=== PATIENT | female | born 1975 | race Caucasian/White ===

== ENCOUNTER 2019-03-23 23:45 | Emergency (ER) | payer BC, SELFPAY ==
[2019-03-23 23:54] VITALS: BP 134/73; PULSE 70; RESP 16; TEMP 36.8; O2SAT 100; BMI 31.7
--- NOTE | 2019-03-24 | XRR_ITS ---
PROCEDURE INFORMATION: Exam: XR Left Knee Exam date and time: 03/24/2019 12:17 AM Age: 43 years old Clinical indication: Injury or trauma; Initial encounter; Blunt trauma; Left; Injury details: CO pain lateral aspect lt knee sp fall; Additional info: Left knee pain and injury TECHNIQUE: Imaging protocol: XR Left knee. Views: 3 views. COMPARISON: No relevant prior studies available. FINDINGS: Bones/joints: There is no joint effusion. The bone density is appropriate. No periosteal reaction. No osteomyelitis. No acute fracture or dislocation. No bony destructive changes. Soft tissues: No foreign body. No gas in the soft tissues. XR/XR knee LT 3V* [id number] IMPRESSION: No acute bony abnormality.
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
[2019-03-24 01:10] VITALS: BP 111/76; O2SAT 97
[2019-03-24 02:05] VITALS: BP 116/55; PULSE 61; O2SAT 96
== END 2019-03-24 02:07 | disposition home or self-care (01) ==
PROVIDERS: Emergency Provider Physician Assistant; Family Provider Family Medicine; PCP Family Medicine
DX: S83.422A Sprain of lateral collateral ligament of left knee, initial encounter (principal); X50.1XXA Overexertion from prolonged static or awkward postures, initial encounter; Y92.009 Unspecified place in unspecified non-institutional (private) residence as the place of occurrence of the external cause; F17.210 Nicotine dependence, cigarettes, uncomplicated
CPT/HCPCS: 73562; 99281; E0114

== ENCOUNTER 2021-07-09 21:41 | Emergency (ER) | payer BC, SELFPAY ==
[2021-07-09 22:15] VITALS: BP 116/76; PULSE 71; RESP 15; TEMP 36.6; O2SAT 96; BMI 31.7
--- NOTE | 2021-07-09 22:25 | ED_ITS ---
HPI - Nausea/Vomiting/Diarrhea General: Chief complaint: Nausea/Vomiting/Diarrhea Stated complaint: N/V, weakness Time Seen by Provider: 07/09/21 22:23 History of Present Illness: 45-year-old female comes in today with complaints of nausea vomiting diarrhea since Tuesday. Patient ports a mild fever on Tuesday and Tuesday. Last episode of emesis was yesterday. Patient continues to feel bad today and wanted to be evaluated. Patient appears mildly unwell but not toxic. Patient appears in no pain. Associated nausea: Yes Associated symtoms: Reports nausea; Denies chest pain Review of Systems Const: Denies: fever(s) Card: Denies: chest pain Resp: Denies: dyspnea GI: Reports: nausea, vomiting and diarrhea : Denies: difficulty voiding Skin/Breast: Denies: rash PFSH ED PFSH: Social History Smoking and tobacco status: current every day smoker Female Reproductive History: Date of last menstrual period: 03/09/19 Physical Exam Const: COMMON NORMALS: alert HENMT: COMMON NORMALS: normocephalic HEAD & SCALP: normocephalic Resp: COMMON NORMALS: normal respiratory effort and clear to auscultation bilaterally AUSCULTATION: clear to auscultation bilaterally Cardio: COMMON NORMALS: regular rate and regular rhythm RATE: regular rate RHYTHM: regular rhythm GI: COMMON NORMALS: Soft to palpation AUSCULTATION: Yes normoactive bowel sounds PALPATION: Yes Soft to palpation, Yes Tenderness to palpation present (GI) (Mild generalized), No Guarding due to palpation present (GI) and No Rebound tenderness present : COMMON NORMALS: Yes no CVA tenderness BLADDER/KIDNEY EXAM: Yes no CVA tenderness Back/Pelvis: COMMON NORMALS: no CVA tenderness Extremity: COMMON NORMALS: normal to inspection Neuro: SENSORIUM/ORIENTATION: Yes alert Skin: COMMON NORMALS: no rashes or lesions noted GENERAL SKIN EXAM: no rashes or lesions noted Course Vital Signs: Vital signs: Vital Signs Temperature 97.9 F 07/09/21 22:15 Pulse Rate 71 07/09/21 22:15 Respiratory Rate 15 07/09/21 22:15 Blood Pressure 116/76 07/09/21 22:15 Pulse Oximetry 96 07/09/21 22:15 MDM - Nausea/Vomiting/Diarrhea Medical Decision Making 45-year-old female comes in today for complaints of 3 days of nausea vomiting and diarrhea. Patient had fever for the first 2 days but has resolved today. Patient continues to feel poorly. On exam abdomen soft nontender. Skin is warm and dry. Vital signs are normal. Differential diagnosis includes but not limited to gastroenteritis, dehydration, cholecystitis. CBC and CMP were unremarkable. Patient's lipase was slightly elevated at 79. Believe the patient probably has a bout of gastroenteritis. Will encourage plenty of fluids and Zofran as needed for nausea. Patient was given 1 L of IV fluids in the ER with some improvement of symptoms. Lab Data : 07/09/21 23:07/09/21: Laboratory Results WBC 7.5 10^3/uL (4.0-10.0) 07/09/21: RBC 4.92 10^6/uL (4.1-5.3) 07/09/21: Hgb 13.3 g/dL (11.5-15.3) 07/09/21: Hct 41.7 % (37.0-47.0) 07/09/21: MCV 84.8 fl (81-99) 07/09/21: MCH 27.0 pg (28.0-34.0) L 07/09/21: MCHC 31.9 g/dL (30.0-36.0) 07/09/21: RDW 16.8 % (12.1-15.1) H 07/09/21: Plt Count 326 10^3/cmm (130-400) 07/09/21: MPV 9.0 fL (7.4-10.4) 07/09/21: Neut % (Auto) 47.0 % 07/09/21: Lymph % (Auto) 32.7 % 07/09/21: [place] % (Auto) 8.6 % 07/09/21: Eos % (Auto) 10.8 % 07/09/21: Baso % (Auto) 0.8 % 07/09/21: Neut # (Auto) 3.54 10^3/uL (1.8-7.7) 07/09/21 23:30 Lymph # (Auto) 2.5 10^3/uL (0.8-4.8) 07/09/21 23:30 [place] # (Auto) 0.7 10^3/uL (0.2-0.9) 07/09/21 23:30 Eos # (Auto) 0.8 10^3/uL (0.0-0.8) 07/09/21 23: Baso # (Auto) 0.1 10^3/uL (0.0-0.1) 07/09/21 23:30 Nucleated RBC % (auto) 0 % 07/09/21 23: Nucleated RBCs # 0.0 /100WBC 07/09/21 23: Sodium 136 mmol/L (136-145) 07/09/21 23: Potassium 3.7 mmol/L (3.5-5.1) 07/09/21: Chloride 102 mmol/L (98-107) 07/09/21: Carbon Dioxide 25 mmol/L (22-29) 07/09/21 23: Anion Gap 12.7 (5-19) 07/09/21 23:30 BUN 13 mg/dL (6-20) 07/09/21:30 Creatinine 0.9 mg/dL (0.5-0.9) 07/09/21 23:30 GFR Calculation 67.7 mL/min (90-130) L 07/09/21 23: Glucose 106 mg/dL (65-115) 07/09/21 23: Calculated Osmolality 283 mOsm/kg (285-295) L 07/09/21: Calcium 8.2 mg/dL (8.5-10.5) L 07/09/21:30 Total Bilirubin 0.2 mg/dL (0.15-1.2) 07/09/21: AST 23 U/L (0-32) 07/09/21: ALT 21 U/L (0-33) 07/09/21 23:30 Alkaline Phosphatase 101 IU/L (35-105) 07/09/21 23:30 Total Protein 6.6 g/dL (6.6-8.7) 07/09/21: Albumin 4.0 g/dL (3.5-5.2) 07/09/21 23:30 Globulin 2.6 g/dL (1.3-4.6) 07/09/21 23:30 Lipase 79 U/L (13-60) H 07/09/21 23:30 HCG, Qual Negative (Negative) 07/09/21 23:30 Urine Color Yellow (Yellow) 07/10/21 00:45 Urine Appearance Clear (CLEAR) 07/10/21 00:45 Urine pH 6 (5-7) 07/10/21 00:45 Ur Specific [place] 1.020 (1.005-1.030) 07/10/21 00:45 Urine Protein Neg (Negative) 07/10/21 00:45 Urine Glucose (UA) Norm (Normal) 07/10/21 00:45 Urine Ketones Negative (Negative) 07/10/21 00:45 Urine Blood Neg (Negative) 07/10/21 00:45 Urine Nitrate Negative (Negative) 07/10/21 00:45 Urine Bilirubin Neg (Negative) 07/10/21 00:45 Urine Urobilinogen Norm mg/dL (Negative) 07/10/21 00:45 Ur Leukocyte Esterase Negative (Negative) 07/10/21 00:45 Influenza Type A Ag Negative (Negative) 07/09/21 23:35 Influenza Type B Ag Negative (Negative) 07/09/21 23:35 Discharge Plan Discharge Patient Disposition: Home Clinical Impression: Gastroenteritis Condition: Stable Prescriptions: New ondansetron 4 mg tablet,disintegrating 4 mg PO Q8H PRN (Reason: nausea and vomiting) Qty: 7 0RF Discharge Orders: Discharge ED (Routine); Ordered 07/10/21 Ordered By: Juan Rai Referrals: Nicholas Anand MD [Primary Care Provider] - Discharge Diet: Advance as tolerated Discharge Activity: Increase activity as tolerated Patient Instructions: Gastroenteritis (ED) Activity Restrictions/Additional Instructions: Drink plenty of fluids. Start diet with a clear liquid diet such as juices, Jell-O, and broth. Increase diet to full liquids such as cream soups, chicken noodle soup, and then increase to a bland diet such as bananas, rice, apples, toast, boiled chicken. Monitor for fevers greater than 100.4, blood in vomit or stool, or worsening abdominal pain. Return to the ER for these new concerns. Follow-up with primary care as needed. Coding Level of Care Code ED Public Information Relations Manager for Chg Fwd Exam Comprehensive
[2021-07-09] MEDS: sodium chloride 0.9% 1,000 ML 999 ML IV (23:28)
[2021-07-09] MEDS: ondansetron 2 mg/ML SDV 2 mL 4 MG IVP (23:29)
[2021-07-09 23:49] LABS: Basophils # 0.1 10^3/uL (0.0-0.1); Basophils % 0.8 %; Eosinophils # 0.8 10^3/uL (0.0-0.8); Eosinophils % 10.8 %; Hematocrit 41.7 % (37.0-47.0); Hemoglobin 13.3 g/dL (11.5-15.3); Lymphocytes # 2.5 10^3/uL (0.8-4.8); Lymphocytes % 32.7 %; Mean Corpuscular HGB Conc 31.9 g/dL (30.0-36.0); Mean Corpuscular Volume 84.8 fl (81-99); Monocytes # 0.7 10^3/uL (0.2-0.9); Monocytes % 8.6 %; Neutrophils # 3.54 10^3/uL (1.8-7.7); Nucleated Red Blood Cells % 0 %; Platelet Count 326 10^3/cmm (130-400); Red Blood Count 4.92 10^6/uL (4.1-5.3); Red Cell Distribution Width 16.8 % (12.1-15.1); White Blood Count 7.5 10^3/uL (4.0-10.0)
[2021-07-10 00:01] LABS: Influenza A by IFA Negative (Negative); Influenza B by IFA Negative (Negative)
[2021-07-10 00:09] LABS: Alanine Aminotransferase 21 U/L (0-33); Alkaline Phosphatase 101 IU/L (35-105); Blood Urea Nitrogen 13 mg/dL (6-20); Calcium 8.2 mg/dL (8.5-10.5); Carbon Dioxide 25 mmol/L (22-29); Chloride 102 mmol/L (98-107); Creatinine Clr Calc Pharmacy 82.7264; Globulin 2.6 g/dL (1.3-4.6); Glomerular Filtration Rate 67.7 mL/min (90-130); Glucose 106 mg/dL (65-115); Lipase 79 U/L (13-60); Osmolality Calculated 283 mOsm/kg (285-295); Sodium 136 mmol/L (136-145); Total Bilirubin 0.2 mg/dL (0.15-1.2); Total Protein 6.6 g/dL (6.6-8.7)
[2021-07-10 00:10] LABS: Anion Gap 12.7 (5-19); Aspartate Amino Transferase 23 U/L (0-32); Potassium 3.7 mmol/L (3.5-5.1)
[2021-07-10 00:15] LABS: HCG, Serum Qual Negative (Negative)
[2021-07-10 01:01] LABS: Add Urine Microscopic? NO; Charge for UA Resulting for Rev
[2021-07-10 01:15] LABS: Bilirubin Urine Neg (Negative); Blood Urine Neg (Negative); Glucose Urine UA Norm (Normal); Ketones Urine Negative (Negative); Leukocyte Esterase Urine Negative (Negative); Nitrate Urine Negative (Negative); Protein Urine Neg (Negative); Urine Appearance Clear (CLEAR); Urine Color Yellow (Yellow); Urobilinogen Urine Norm (Negative); pH Urine 6 (5-7)
--- NOTE | 2021-07-10 01:18 | PC.NURSE ---
put bp cuff on pt several times she keeps removing, pt took off her iv fluids states I have been here since 9
[2021-07-10 01:19] VITALS: BP 102/55
== END 2021-07-10 01:39 | disposition home or self-care (01) ==
PROVIDERS: Emergency Provider Nurse Practitioner Family; PCP Family Medicine
DX: K52.9 Noninfective gastroenteritis and colitis, unspecified (principal); F17.200 Nicotine dependence, unspecified, uncomplicated
CPT/HCPCS: 80053; 81003; 83690; 84703; 85025; 87804; 96361; 96374; 99283; J2405; J7030

== ENCOUNTER 2021-08-12 08:09 | Outpatient (CLI) | payer BC, SELFPAY ==
--- NOTE | 2021-08-12 | US_ITS ---
WS: [id number] ULTRASOUND PELVIS TECHNIQUE: Transabdominal and transvaginal CLINICAL INFORMATION: MENORRHAGIA PREMENOPAUSAL LMP: 07/26/21 : No. COMPARISON: None. FINDINGS: Uterus Orientation: Anteverted. Size: 9.8 cm x 4.6 cm x 4.2 cm. Masses: Intramural fibroid measuring 2.1 x 1.5 x 2.0 cm Cervix: 3.9 cm. Endometrium: Normal. Endometrium thickness: 7.6 mm. Adnexa: Bilateral complex ovarian cysts described below. Right ovary size: 2.6 cm x 3.2 cm x 1.7 cm. Right ovary volume: 7.3 ccm3. Left ovary size: 3.1 cm x 3.0 cm x 1.8 cm. Left ovary volume: 9.0 ccm3 Free fluid: None. Other findings: None. US/US pelvic with transvaginal IMPRESSION: 1. Fibroid uterus. Endometrium measures 7.6 mm. 2. Intramural fibroid measuring 2.1 x 1.5 x 2.0 cm 3. Cervix measures 3.9 CM. 4. Complex cyst RIGHT adnexa measuring 2.2 x 1.5 x 1.3 CM. 5. Complex LEFT ovarian cyst measuring 2.5 x 1.6 x 2.4 CM. 6. No free fluid in the cul-de-sac. 7. Ovarian cyst can be followed up in one to 2 menstrual cycles.
== END 2021-08-12 08:10 | disposition home or self-care (01) ==
LOC: RADOUTREAD 08-13 08:11
PROVIDERS: PCP Family Medicine; Visit Provider Family Medicine
DX: N92.4 Excessive bleeding in the premenopausal period (principal); D25.1 Intramural leiomyoma of uterus; N83.202 Unspecified ovarian cyst, left side; N83.201 Unspecified ovarian cyst, right side
CPT/HCPCS: 76830; 76856

== ENCOUNTER 2021-09-18 16:06 | Outpatient (CLI) | payer BC, SELFPAY ==
[2021-09-18 16:37] LABS: Basophils # 0.1 10^3/uL (0.0-0.1); Eosinophils # 0.9 10^3/uL (0.0-0.8); Eosinophils % 7.9 %; Hematocrit 39.3 % (37.0-47.0); Hemoglobin 13.1 g/dL (11.5-15.3); Lymphocytes # 2.6 10^3/uL (0.8-4.8); Lymphocytes % 23.2 %; Mean Corpuscular HGB Conc 33.3 g/dL (30.0-36.0); Mean Corpuscular Hemoglobin 27.9 pg (28.0-34.0); Mean Corpuscular Volume 83.6 fl (81-99); Mean Platelet Volume 8.7 fL (7.4-10.4); Monocytes # 0.7 10^3/uL (0.2-0.9); Monocytes % 6.2 %; Neutrophils # 6.75 10^3/uL (1.8-7.7); Neutrophils % 61.4 %; Nucleated Red Blood Cells % 0 %; Platelet Count 366 10^3/cmm (130-400); Red Cell Distribution Width 15.6 % (12.1-15.1)
[2021-09-18 17:15] LABS: Follicle Stimulating Hormone 25.3 mIU/mL; Prolactin 21.58 ng/mL (4.8-23.3); Thyroid Stimulating Hormone 1.38 uIU/mL (0.27-4.20)
== END 2021-09-18 16:07 | disposition home or self-care (01) ==
LOC: LAB 16:09
PROVIDERS: PCP Family Medicine; Visit Provider Obstetrics & Gynecology
DX: N92.0 Excessive and frequent menstruation with regular cycle (principal)
CPT/HCPCS: 83001; 84146; 84443; 85025; 87624

== ENCOUNTER 2021-10-06 10:09 | Outpatient (CLI) | payer BC, SELFPAY ==
--- NOTE | 2021-10-06 10:19 | MM_ITS ---
WS: [id number] SCREENING DIGITAL BREAST TOMOSYNTHESIS MAMMOGRAM WITH CAD HISTORY: SCREENING COMPARISON: None available. Bilateral CC and MLO with tomosynthesis and synthetic mammography submitted. Computer aided detection analyzed. Breast composition: There are scattered areas of fibroglandular density. Asymmetries in each breast n eed further evaluation. RIGHT breast asymmetry at 9:00 in the mid to posterior depth. There is an asy mmetry seen best on the LEFT MLO projection just below the nipple line measuring 10 mm. This is proba usry within the lateral posterior breast on the CC projection. MM/[id number] IMPRESSION: BI-RADS: 0-Incomplete: Need additional imaging evaluation FOLLOW UP: Need Additional Imaging LEFT breast: Spot compression views (CC and MLO). True ML. Ultrasound to follow if abnormality persists. RIGHT breast: Spot compression views (CC and MLO). True ML. Ultrasound to follo w if abnormality persists.
== END 2021-10-06 10:10 | disposition home or self-care (01) ==
LOC: RAD 10:11
PROVIDERS: PCP Family Medicine; Visit Provider Family Medicine
DX: Z12.31 Encounter for screening mammogram for malignant neoplasm of breast (principal)
CPT/HCPCS: 77063; 77067

== ENCOUNTER 2021-10-21 11:54 | Outpatient (CLI) | payer BC, SELFPAY ==
--- NOTE | 2021-10-21 12:00 | MM_ITS ---
WS: [id number] ADDITIONAL VIEWS BILATERAL MAMMOGRAM AND BILATERAL BREAST ULTRASOUND, WITH DIGITAL BREAST tomosynthes is. ADDITIONAL VIEWS BILATERAL MAMMOGRAM WITH DIGITAL BREAST TOMOSYNTHESIS AND SM. HISTORY: ABNORMAL MAMMO COMPARISON: 10/06/2021 Right breast: Asymmetry and very slight increased density persists in the lateral RIGHT breast near 9 :00 mid to posterior depth. Ultrasound to follow. Left breast: Asymmetry measuring 11 mm persists in the posterior LEFT breast near 9:00 with additiona l views. BREAST ULTRASOUND RIGHT breast: Ultrasound directed to the 8-10 o'clock axis. No definite mass identified. No correspon ding abnormality to the mammogram. LEFT breast: LEFT breast ultrasound directed to the medial breast. There is a small cluster of cysts at 9:00. This cluster measures 2 x 2 x 5 mm. Does not definitely correspond in size to the mammograph ic abnormality. MM/[id number] IMPRESSION: BI-RADS: 3-Probably Benign FOLLOW UP: 6 Month Follow-up The asymmetries in each breast persists with additional imaging and no correspo nding abnormality by ultrasound. I suspect these are benign fibroglandular dens ities. Recommend diagnostic mammogram in 6 months. Favor this is benign. Ultras ound may be necessary.
== END 2021-10-21 11:55 | disposition home or self-care (01) ==
PROVIDERS: PCP Family Medicine; Visit Provider Family Medicine
DX: R92.8 Other abnormal and inconclusive findings on diagnostic imaging of breast (principal)
CPT/HCPCS: 76642; 77062

== ENCOUNTER → 2021-10-26 08:04 | Outpatient (BNVA) | payer BC, SELFPAY | PROVIDERS: PCP Family Medicine; Visit Provider Obstetrics & Gynecology | DX: D25.9 Leiomyoma of uterus, unspecified (principal); N92.4 Excessive bleeding in the premenopausal period; N92.0 Excessive and frequent menstruation with regular cycle | CPT/HCPCS: 81025; 88305 ==

== ENCOUNTER → 2021-12-01 16:09 | Outpatient (BNVA) | payer BC, SELFPAY | PROVIDERS: Visit Provider Internal Medicine Critical Care Medicine | DX: J45.909 Unspecified asthma, uncomplicated (principal); R06.02 Shortness of breath; J44.9 Chronic obstructive pulmonary disease, unspecified; F17.200 Nicotine dependence, unspecified, uncomplicated | CPT/HCPCS: 36415; 82785; 86003 ==

== ENCOUNTER 2021-12-10 09:12 | Outpatient (CLI) | payer BC, SELFPAY ==
--- NOTE | 2021-12-10 09:55 | PFTS_ITS ---
Date of Study:12/10/21 Date of Dictation: MECHANICS: Forced vital capacity (FVC) is normal. Forced expiratory volume in one second (FEV1) is normal. FEV1/FVC is normal. FLOW VOLUME LOOP: Reduced flow specially at lower lung volumes with scooping. LUNG VOLUMES: Total lung capacity (TLC) is increased. Residual volume (RV) is increased. DIFFUSING CAPACITY FOR CARBON MONOXIDE: Normal. INTERPRETATION: The postbronchodilator spirometry is normal. There is some postbronchodilator response. The flow-volume loop is consistent with small airways disease. Lung volumes are consistent with hyperinflation and air trapping. Gas exchange (DLCO) is normal. MTDD
== END 2021-12-10 09:13 | disposition home or self-care (01) ==
LOC: RT 09:13
PROVIDERS: PCP Family Medicine; Visit Provider Internal Medicine Critical Care Medicine
DX: J45.909 Unspecified asthma, uncomplicated (principal)
CPT/HCPCS: 94060; 94726; 94729; J7611

== ENCOUNTER 2021-12-23 10:18 | Day surgery (SDC) | payer BC, SELFPAY ==
--- NOTE | 2021-12-21 14:17 | P.ANESASSM_ITS ---
Pre-Anesthetic Assessment Height/Weight: Height 1.63 m Operation Date: 12/23/21 13:05 Proposed Procedures p Hysteroscopy, dilation and curettage with Myosure 65586, 87947, 63259,N93.9(Not Applicable) - David Elizondo MD s Dilation And Curettage (D&C)(Not Applicable) - David Elizondo MD Familial anesthetic complications: None Social Tobacco and No alcohol Exam alert, oriented x 3, clear to auscultation bilaterally and regular rate & rhythm Airway Mallampati: Class III Dentition: full Pulmonary Chronic Obstructive Pulmonary Disease CV/HEM None reported None reported Hepatic None reported GI None reported Metabolic None reported Musc/skel None reported Neuropsych None reported takes acetazolamide to decrease CSF Anesthetic Plan ASA status: 2 Anesthesia: General Risk of > 500 ml blood loss (7ml/kg in children): No Medications/Allergies Home Medications Medication Instructions Recorded Confirmed Last Taken Type albuterol sulfate 2.5 mg/3 mL 2.5 mg continuous nebulization 08/18/21 12/01/21 Unknown History (0.083 %) solution for nebulization albuterol sulfate 90 mcg/actuation 1 puff inhalation 08/18/21 12/01/21 Unknown History aerosol inhaler eflornithine 13.9 % topical cream 1 applic topical BID #45 grams 08/18/21 12/01/21 Unknown Rx (Vaniqa) fluticasone 250 mcg-salmeterol 50 ea inhalation 08/18/21 12/01/21 Unknown History mcg/dose blistr powdr for inhalation (Advair Diskus) sertraline 100 mg tablet 100 mg PO 08/18/21 12/01/21 Unknown History trazodone 50 mg tablet 50 mg PO 08/18/21 12/01/21 Unknown History tretinoin 0.1 % topical cream 1 applic topical DAILY #45 grams 08/18/21 12/01/21 Unknown Rx zonisamide 100 mg capsule 100 mg PO 08/18/21 12/01/21 Unknown History ibuprofen 800 mg tablet 800 mg PO Q8H #60 tabs 10/26/21 12/01/21 Unknown Rx fluticasone fur. 100 mcg-umeclid 1 inh inhalation DAILY 30 days #28 12/01/21 12/01/21 Unknown Rx 62.5 mcg-vilant 25 mcg ea inhalat.powder (Trelegy Ellipta) Allergies Allergy/AdvReac Type Severity Reaction Status Date / Time No Known Allergies Allergy Verified 12/21/21 08:14 [facility] [place] Anesthesia Medical History (Updated 12/01/21 @ 15:57 by Jadon Marie MD) No pertinent past medical history Surgical History H/O section x2 H/O tubal ligation performed with last section No pertinent past surgical history Status post right foot surgery right foot Family History (Updated 12/01/21 @ 15:17 by Juana Simeon LPN) Mother Diabetes Hyperlipidemia Hypertension Heart disease Father Hypertension Lung cancer Family/Other Breast cancer maternal first cousin, 50 Denies family history of Colon cancer Ovarian cancer Clotting disorder Anesthesia complication Bleeding disorder Uterine cancer Thyroid condition Stroke Social History Smoking and tobacco status: current every day smoker (1ppd) Female Reproductive History Date of last menstrual period: 03/09/19 Data Anesthesia Cardiac Studies: No Data to Display
[2021-12-21 14:39] VITALS: BMI 34.1
[2021-12-21 15:23] LABS: Add Urine Microscopic? NO; Charge for UA Resulting for Rev
[2021-12-21 15:30] LABS: Basophils # 0.1 10^3/uL (0.0-0.1); Basophils % 0.9 %; Eosinophils # 0.8 10^3/uL (0.0-0.8); Eosinophils % 9.7 %; Hematocrit 36.3 % (37.0-47.0); Hemoglobin 11.8 g/dL (11.5-15.3); Lymphocytes % 23.4 %; Mean Corpuscular HGB Conc 32.5 g/dL (30.0-36.0); Mean Corpuscular Hemoglobin 28.3 pg (28.0-34.0); Mean Corpuscular Volume 87.1 fl (81-99); Mean Platelet Volume 9.5 fL (7.4-10.4); Monocytes # 0.8 10^3/uL (0.2-0.9); Monocytes % 8.7 %; Neutrophils # 4.95 10^3/uL (1.8-7.7); Nucleated Red Blood Cells % 0 %; Platelet Count 354 10^3/cmm (130-400); Red Blood Count 4.17 10^6/uL (4.1-5.3); Red Cell Distribution Width 15.9 % (12.1-15.1); White Blood Count 8.7 10^3/uL (4.0-10.0)
[2021-12-21 15:37] LABS: Bilirubin Urine Neg (Negative); Blood Urine Neg (Negative); Glucose Urine UA Norm (Normal); Ketones Urine Negative (Negative); Leukocyte Esterase Urine Negative (Negative); Nitrate Urine Negative (Negative); Protein Urine Neg (Negative); Urine Appearance Clear (CLEAR); Urine Color Yellow (Yellow); Urobilinogen Urine Norm (Negative); pH Urine 6 (5-7)
[2021-12-21 15:38] LABS: OR HCG Qualitative Urine Negative (Negative)
[2021-12-21 15:57] LABS: Alanine Aminotransferase 17 U/L (0-33); Albumin Level 3.9 g/dL (3.5-5.2); Alkaline Phosphatase 125 U/L (35-105); Anion Gap 14.6 (5-19); Aspartate Amino Transferase 26 U/L (0-32); Blood Urea Nitrogen 14 mg/dL (6-20); Calcium 8.9 mg/dL (8.5-10.5); Carbon Dioxide 25 mmol/L (22-29); Chloride 102 mmol/L (98-107); Globulin 2.7 g/dL (1.3-4.6); Glomerular Filtration Rate 77.6 mL/min (90-130); Glucose 111 mg/dL (65-115); Osmolality Calculated 287 mOsm/kg (285-295); Potassium 3.6 mmol/L (3.5-5.1); Sodium 138 mmol/L (136-145); Total Bilirubin 0.2 mg/dL (0.15-1.2); Total Protein 6.6 g/dL (6.6-8.7)
[2021-12-23] VITALS (8 sets, daily range): BP systolic 108–138; BP diastolic 75–107; PULSE 64–96; RESP 15–20; TEMP 36.1–36.7; O2SAT 94–97
--- NOTE | 2021-12-23 10:46 | P.ANESUD_ITS ---
Pre-Anesthetic Update Pre-Anesthetic Assessment: Date of Surgery/Procedure: 12/23/21 Preop Bryanna gnosis: Abnormal uterine bleeding Proposed Procedure: Operation Date: 12/23/21 11:40 Proposed Procedures p Hysteroscopy, dilation and curettage with Myosure 31358, 17576, 11334,N93.9(Not Applicable) - David Elizondo MD s Dilation And Curettage (D&C)(Not Applicable) - David Elizondo MD Any changes to Pre-Anesthetic Assessment?: No Last Intake: Intake Last Liquid Date 12/22/21 Last Liquid Time 23:58 Last Solid Date 12/22/21 Last Solid Time 21:00 Labs Last 48hrs: Short CBC 12/21/21 Range/Units 15:00 WBC 8.7 (4.0-10.0) 10^3/ uL Hgb 11.8 (11.5-15.3) g/dL Hct 36.3 L (37.0-47.0) % MCV 87.1 (81-99) fl Plt Count 354 (130-400) 10^3/c mm Neut % (Auto) 57.0 % Neut # (Auto) 4.95 (1.8-7.7) 10^3/u L BMP 12/21/21 15:00 Sodium 138 Potassium 3.6 Chloride 102 Carbon Dioxide 25 BUN 14 Creatinine 0.8 Glucose 111 Calcium 8.9 Liver Function 12/21/21 Range/Units 15:00 Total Bilirubin 0.2 (0.15-1.2) mg/dL AST 26 (0-32) U/L ALT 17 (0-33) U/L Alkaline Phosphata se 125 H (35-105) U/L Albumin 3.9 (3.5-5.2) g/dL Urine 12/21/21 Range/Units 15:00 Urine Color Yellow (Yellow) Urine Appearance Clear (CLEAR) Urine pH 6 (5-7) Ur Specific Gravit y 1.020 (1.005-1.030) Urine Protein Neg (Negative) Urine Glucose (UA) Norm (Normal) Urine Ketones Negative (Negative) Urine Nitrate Negative (Negative) Urine Bilirubin Neg (Negative) Ur Leukocyte Holly ase Negative (Negative) Vitals: Temperature 97.1 F L 12/23/21 10:27 Temperature Source Temporal Artery S can 12/23/21 10:27 Pulse Rate 64 10/12/22 10:27 Respiratory Rate 17 12/23/21 10:27 Blood Pressure 108/75 12/23/21 10:27 Blood Pressure Michelle n 86 12/23/21 10:27 Pulse Oximetry 96 12/23/21 10:27 Oxygen Delivery Me thod 12/23/21 10:39 Exam: Pre-Anes Outpt Exam: alert, oriented x 3, clear to auscultation bilaterally and regular rate & rhythm Cardiac Studies: No Data to Display
[2021-12-23] MEDS: sodium chloride 0.9% 500 ML IV (11:04)
[2021-12-23] MEDS: scopolamine 1.5 Patch 1 PATCH TRANSDERMA (11:05)
--- NOTE | 2021-12-23 12:11 | W.PM.OPSUD ---
Surgery/Procedure H&P Update DATE OF PROCEDURE: December 23, 2021 DATE H&P PERFORMED: 12/21/21 H&P UPDATE INFORMATION: I have reviewed H&P completed within last 30 days, I have examined patient prior to procedure and No changes to prior documentation PREOP DIAGNOSIS: Abnormal uterine bleeding PLANNED PROCEDURE: Operation Date: 12/23/21 11:40 Proposed Procedures p Hysteroscopy, dilation and curettage with Myosure 79434, 19501, 36450,N93.9(Not Applicable) - David Elizondo MD s Dilation And Curettage (D&C)(Not Applicable) - David Elizondo MD
[2021-12-23] MEDS: ceFAZolin 2,000 MG in sodium chloride 0.9% (plus) 50 ML 100 MG IV (12:38)
[2021-12-23] MEDS: sodium chloride 0.9% 1,000 ML 30 ML IV (12:56)
[2021-12-23] MEDS: ketorolac 30 mg/mL INJ IVP (13:46)
--- NOTE | 2021-12-23 13:47 | PM.OP ---
Operative Report Date of procedure: December 23, 2021 Pre-op diagnosis: Preop Diagnosis Abnormal uterine bleeding Post-op diagnosis: Same as above Post-op findings: Enlarged uterus. Proliferative endometrium Procedure done: Hysteroscopy. Dilation and curettage via MyoSure Specimens removed/disposition: Endometrial curettings Surgeon: David Elizondo MD Estimated blood loss (mL): 10 IV fluids (mL): 500 Complications: None Brief History: Mrs. Michel 45 years old female with abnormal uterine bleeding unresponsive to medical management Procedure: After informed consent, the risks included but were not limited to bleeding, infection, injury to internal organs. The patient was counseled on a possible laparotomy and on the potential need for hysterectomy. The patient expressed understanding of the risks involved, all questions were answered, and the patient consented to the procedure. The patient was taken to the operating room where general anesthesia was administered. She was placed in the dorsal lithotomy position and prepped and draped in sterile fashion. A time out procedure was performed. The patient was examined under anesthesia and found to have a normal uterus with normal adnexa. A sterile speculum was placed in the vagina, and the anterior lip of cervix was grasped with the single toothed tenaculum. The uterus was then gently sounded to 9 cm, and the cervix was dilated with cervical dilators. The 0 degrees MyoSure hysteroscope was advanced gently to the uterine fundus while visualizing the monitor. Survey of the uterine cavity showed proliferative endometrium. Survey of the uterine cavity showed: fundus normal proliferative endometrium; left ostium, and lateral wall with proliferative endometrium; right ostium, and lateral wall with proliferative endometrium; anterior and posterior canales are with proliferative endometrium; endocervical canal is normal. The MyoSure device was advanced and the direct visualization the endometrium was morcellated without complication. At the end of morcellation the fluid deficit was 340 mL and was estimated at approximately 250 mL were on the floor. Then a small curette was advanced gently to the uterine fundus rotated to clear the uterus. The curettage was then performed until a gritty texture was noted. Hysteroscopy was reinserted. There was minimal bleeding noted and the tenaculum removed with goad hemostasis noted. The patient tolerated the procedure well. The patient was taken to the recovery area in stable condition.
--- NOTE | 2021-12-23 14:21 | SUR.PHASEII ---
Patient was brought to Postop via gurney. Will hold patient until 1500 and monitor. Patient is eating crackers and ice chips. No complaints, no pain.
--- NOTE | 2021-12-24 05:20 | ANE.PACU2 ---
Inpatient post-anesthesia follow up: Airway intact: Yes Vital signs: Temperature 97.1 F Pulse Rate 79 Respiratory Rate 18 Blood Pressure 131/88 Pulse Oximetry 97 Oxygen Delivery Me thod Room Air Oxygen Flow Rate 8 Fraction of Inspir ed Oxygen Hydration adequate: Yes Nausea and vomiting: No Pain level: 1 Mental status: Baseline Additional Comments: NO respiratory distress or O2 desaturation while on room air 2 hours after possible aspiration event. Patient discharged in stable condition. Informed of signs of aspiration pneumonia to look out for.
== END 2021-12-23 15:00 | disposition home or self-care (01) ==
PROVIDERS: PCP Family Medicine; Visit Provider Obstetrics & Gynecology
PROC: 0UDB8ZZ Extraction of Endometrium, Via Natural or Artificial Opening Endoscopic (ICD-10-PCS; CPT 58558; principal; 2021-12-23 11:30)
PROC: (CPT 58120; 2021-12-23 11:30)
DX: N93.9 Abnormal uterine and vaginal bleeding, unspecified (principal); J44.9 Chronic obstructive pulmonary disease, unspecified; F17.210 Nicotine dependence, cigarettes, uncomplicated
CPT/HCPCS: 58558; 36415; 80053; 81003; 84703; 85025; 86850; 86900; 88305; J1885; J2704; J3010; J3490; J7030; J7040

== ENCOUNTER 2022-02-24 13:41 | Observation (INO) | payer BC, SELFPAY ==
[2022-02-22 09:13] VITALS: BMI 34.0
--- NOTE | 2022-02-22 09:32 | P.ANESASSM_ITS ---
Pre-Anesthetic Assessment Height/Weight: Height 1.63 m Weight 89.811 kg Preop Diagnosis: Abnormal uterine bleeding Operation Date: 02/24/22 07:00 Proposed Procedures p Laparoscopic assisted vaginal hysterectomy, right oophorectomy 72085,N93.9(Not Applicable) - David Elizondo MD s Laparoscopic Salpingo Oophorectomy(Right) - David Elizondo MD Familial anesthetic complications: Vomited after emergence with last surgery, ? aspiration, did not require admission but had to take some steroids afterwards to get her lungs to bounce back. States she has pretty bad acid reflux, Informed patient to take prilosec OTC Social Tobacco and No alcohol Exam alert, oriented x 3, clear to auscultation bilaterally and regular rate & rhythm Airway Mallampati: Class III Dentition: full Pulmonary Chronic Obstructive Pulmonary Disease CV/HEM None reported None reported Hepatic None reported GI None reported Metabolic None reported Musc/skel None reported Neuropsych None reported Anesthetic Plan ASA status: 2 Anesthesia: General Risk of > 500 ml blood loss (7ml/kg in children): No Medications/Allergies Home Medications Medication Instructions Recorded Confirmed Last Taken Type albuterol sulfate 2.5 mg/3 mL 2.5 mg continuous nebulization PRN 08/18/21 02/22/22 Unknown History (0.083 %) solution for nebulization PRN Wheezing albuterol sulfate 90 mcg/actuation 1 puff inhalation PRN PRN Wheezing 08/18/21 02/22/22 02/20/22 History aerosol inhaler fluticasone 250 mcg-salmeterol 50 1 inh inhalation BID 08/18/21 02/22/22 02/21/22 19:00 History mcg/dose blistr powdr for inhalation (Advair Diskus) trazodone 50 mg tablet 50 mg PO DAILY 08/18/21 02/22/22 02/21/22 19:00 History tretinoin 0.1 % topical cream 1 applic topical DAILY #45 grams 08/18/21 02/22/22 02/20/22 Rx zonisamide 100 mg capsule 400 mg PO DAILY 08/18/21 02/22/22 02/21/22 19:00 History (Zonegran) fluticasone fur. 100 mcg-umeclid 1 inh inhalation DAILY 30 days #28 12/01/21 02/22/22 Unknown Rx 62.5 mcg-vilant 25 mcg ea inhalat.powder (Trelegy Ellipta) ibuprofen 800 mg tablet 800 mg PO TID PRN pain #60 tabs 12/23/21 02/22/22 Unknown Rx alprazolam 0.25 mg tablet (Xanax) 0.25 mg PO PRN PRN Anxiety 02/22/22 02/22/22 02/20/22 History Allergies Allergy/AdvReac Type Severity Reaction Status Date / Time No Known Allergies Allergy Verified 02/22/22 09:08 [facility] Anesthesia Medical History (Updated 12/01/21 @ 15:57 by Jadon Marie MD) No pertinent past medical history Surgical History (Updated 01/04/22 @ 07:48 by Mai Barakat RN) H/O section x2 H/O tubal ligation performed with last section No pertinent past surgical history Status post right foot surgery right foot Family History (Updated 12/01/21 @ 15:17 by Juana Simeon LPN) Mother Diabetes Hyperlipidemia Hypertension Heart disease Father Hypertension Lung cancer Family/Other Breast cancer maternal first cousin, 50 Denies family history of Colon cancer Ovarian cancer Clotting disorder Anesthesia complication Bleeding disorder Uterine cancer Thyroid condition Stroke Social History Smoking and tobacco status: current every day smoker (1ppd) Female Reproductive History Date of last menstrual period: 03/09/19 Data Anesthesia Cardiac Studies: No Data to Display
[2022-02-24] VITALS (16 sets, daily range): BP systolic 100–151; BP diastolic 63–106; PULSE 56–98; RESP 11–20; TEMP 36–36.8; O2SAT 94–99
--- NOTE | 2022-02-24 06:31 | P.ANESUD_ITS ---
Pre-Anesthetic Update Pre-Anesthetic Assessment: Date of Surgery/Procedure: 02/24/22 Preop Bryanna gnosis: Menorrhagia Proposed Procedure: Operation Date: 02/24/22 07:00 Proposed Procedures p Laparoscopic assisted vaginal hysterectomy, right oophorectomy 50102,N93.9(Not Applicable) - David Elizondo MD s Laparoscopic Salpingo Oophorectomy(Right) - David Elizondo MD Any changes to Pre-Anesthetic Assessment?: No Last Intake: Intake Last Liquid Date 02/23/22 Last Liquid Time 19:00 Last Solid Date 02/23/22 Last Solid Time 19:00 Vitals: Temperature 97.5 F L 02/24/22 06:21 Temperature Source Temporal Artery S can 02/24/22 06:21 Pulse Rate 87 02/24/22 06:21 Pulse Rhythm 02/24/22 06:21 Pulse Strength 3+ Normal 02/24/22 06:21 Respiratory Rate 18 02/24/22 06:21 Blood Pressure 128/106 02/24/22 06:21 Blood Pressure Michelle n 113 02/24/22 06:21 Pulse Oximetry 94 02/24/22 06:21 Oxygen Delivery Me thod 02/24/22 06:21 Exam: Pre-Anes Outpt Exam: alert, oriented x 3, clear to auscultation bilaterally and regular rate & rhythm Cardiac Studies: No Data to Display
[2022-02-24] MEDS: scopolamine 1.5 Patch 1 PATCH TRANSDERMA (06:32)
[2022-02-24 06:35] LABS: OR HCG Qualitative Urine Negative (Negative)
[2022-02-24] MEDS: sodium chloride 0.9% 500 ML IV (06:36)
[2022-02-24 06:55] LABS: Basophils # 0.1 10^3/uL (0.0-0.1); Basophils % 0.9 %; Eosinophils # 0.8 10^3/uL (0.0-0.8); Eosinophils % 8.9 %; Hematocrit 39.6 % (37.0-47.0); Hemoglobin 12.6 g/dL (11.5-15.3); Lymphocytes # 2.3 10^3/uL (0.8-4.8); Lymphocytes % 26.4 %; Mean Corpuscular HGB Conc 31.8 g/dL (30.0-36.0); Mean Corpuscular Hemoglobin 27.5 pg (28.0-34.0); Mean Corpuscular Volume 86.3 fl (81-99); Mean Platelet Volume 8.9 fL (7.4-10.4); Monocytes # 0.7 10^3/uL (0.2-0.9); Monocytes % 7.7 %; Neutrophils # 4.89 10^3/uL (1.8-7.7); Neutrophils % 55.9 %; Nucleated Red Blood Cells % 0 %; Platelet Count 366 10^3/cmm (130-400); Red Blood Count 4.59 10^6/uL (4.1-5.3); Red Cell Distribution Width 15.2 % (12.1-15.1); White Blood Count 8.8 10^3/uL (4.0-10.0)
--- NOTE | 2022-02-24 06:58 | W.PM.OPSUD ---
Surgery/Procedure H&P Update DATE OF PROCEDURE: February 24, 2022 DATE H&P PERFORMED: 02/22/22 H&P UPDATE INFORMATION: I have reviewed H&P completed within last 30 days, I have examined patient prior to procedure and No changes to prior documentation PREOP DIAGNOSIS: Menorrhagia PLANNED PROCEDURE: Operation Date: 02/24/22 07:00 Proposed Procedures p Laparoscopic assisted vaginal hysterectomy, right oophorectomy 93686,N93.9(Not Applicable) - David Elizondo MD s Laparoscopic Salpingo Oophorectomy(Right) - David Elizondo MD
[2022-02-24] MEDS: sodium chloride 0.9% 1,000 ML 30 ML IV (07:10)
[2022-02-24 07:12] LABS: Alanine Aminotransferase 13 U/L (0-33); Albumin Level 3.8 g/dL (3.5-5.2); Alkaline Phosphatase 104 U/L (35-105); Anion Gap 12.1 (5-19); Blood Urea Nitrogen 5 mg/dL (6-20); Calcium 8.7 mg/dL (8.5-10.5); Carbon Dioxide 22 mmol/L (22-29); Chloride 107 mmol/L (98-107); Globulin 2.6 g/dL (1.3-4.6); Glomerular Filtration Rate 90.1 mL/min (90-130); Glucose 98 mg/dL (65-115); Osmolality Calculated 281 mOsm/kg (285-295); Potassium 4.1 mmol/L (3.5-5.1); Sodium 137 mmol/L (136-145); Total Bilirubin 0.2 mg/dL (0.15-1.2); Total Protein 6.4 g/dL (6.6-8.7)
[2022-02-24 07:16] LABS: Protein Urine Trace (Negative); Specific Gravity, Urine 1.015 (1.005-1.030); Urine Appearance Clear (CLEAR); Urine Color Yellow (Yellow); pH Urine 7 (5-7)
[2022-02-24 07:17] LABS: Add Urine Culture? No; Add Urine Microscopic? YES; Amorphous Sediment Urine 2+ /hpf; Bilirubin Urine Neg (Negative); Blood Urine Neg (Negative); Glucose Urine UA Norm (Normal); Ketones Urine Negative (Negative); Leukocyte Esterase Urine 1+ (Negative); Nitrate Urine Negative (Negative); Squamous Epithelial Cell Urine 25-40 /hpf (0-5); Urobilinogen Urine Neg (Negative); WBC Urine 0-4 /hpf (0-5)
[2022-02-24] MEDS: ceFOXitin 2,000 MG in sodium chloride 0.9% (plus) 50 ML 100 MG IV (07:21)
[2022-02-24 07:30] LABS: Aspartate Amino Transferase 15 U/L (0-32)
--- NOTE | 2022-02-24 09:28 | P.OP_ITS ---
Operative Report Date of procedure: February 24, 2022 Pre-op diagnosis: Preop Diagnosis Menorrhagia, fibroid uterus, right ovarian cystic mass Post-op diagnosis: Same as above Procedure done: Laparoscopic-assisted vaginal hysterectomy with right salpingo-oophorectomy Surgeon: David Elizondo MD Estimated blood loss (mL): 150 IV fluids (mL): 900 Urine output (mL): 100 Complications: None Procedure: After discussing informed consent again, the patient was taken to the operating room where general anesthesia was administered. She was placed in the dorsal lithotomy position in low stirrups and prepped and draped in sterile fashion. Pre-Procedure Time-Out verifying the correct patient identity, correct procedure verified with consent, correct site and side, correct patient position, availability of correct implants and any special equipment or requirements was performed and acknowledge by the OR team. After the initial preparation, the procedure commenced at the vagina. With a Bookwalter vaginal retractor was place to visualize the cervix; the anterior and posterior lips of the cervix were separately grasped and clamped with silva tooth tenaculum. The cervix was then dilated to a #6 hegar dilator and a uterine manipulator within the uterine cavity for manipulation purposes being careful not to puncture the uterus. A Salas catheter was placed in the bladder. Attention was then turned to the abdomen. The umbilical region was infiltrated with 0.5% Marcaine with epinephrine. Following infiltration with Marcaine, an intraumbilical incision was made and the Verres needle was gently advanced taking care to feel for the typical sensation of penetrating the peritoneum. With CO2 infiltration, an opening pressure of 5 mmHg was noted, and following this, a pneumoperitoneum of 15 mmHg was created. A 5 mm Optiview trocar was then passed through the same incision un elizabeth direct visualization. Trocar was removed and the laparoscope was then inserted through the trocar sleeve. Visualization of the peritoneal cavity was then obtained and a brief inspection did not reveal any signs of complications from entry. Under direct observation, a second incision was made in left lower quadrant, and a 5 mm trocar and sleeve were admitted into the abdomen under direct, laparoscopic visualization, placed laterally on left sides taking care to respect anatomical landmarks and vessels without complication. Once the placement of the ports was complete, the actual laparoscopic procedure began. The pelvic contents were visualized and noted an enlarged normal size uterus with a string adhesion to the fundus, the adhesion was grasped, sealed and cut with the Enseal device. The cul-de-sac, normal left fallopian tubes and ovary normal, normal appendix, and both ureters were identified crossing the pelvic brim and pelvic sidewall. The right enlarged ovary noted with complex cyst. The right infundibulopelvic ligament was grasped and was coagulated/sealed and then transected with the Enseal device. The mesosalpinx was then sequentially, clamped, ligated, and cut using the Enseal device working alongside the length of the tube and towards the cornua. The left round ligament was grasped coagulated/sealed and transected using Enseal device. The left broad ligament was opened down to the level of the uterine artery and vein. The left mesosalpinx was then sequentially, clamped, ligated, and cut using the Enseal device working alongside the length of the tube and towards the cornua. The left round ligament was grasped coagulated/sealed and then transected with the Enseal device, and the right broad ligament was opened down to the level of the right uterine artery and vein. Peritoneum of the lower uterine segment was entered using Enseal, and the bladder was dissected off the lower uterine segment using blunt dissection. Careful inspection revealed complete hemostasis. Attention was then turned to the vaginal aspect of the surgery. The Salas catheter was clamped. A Bookwalter vaginal retractor was placed in the vagina and the uterine manipulator was removed. The tenaculum was repositioned anteriorly and posteriorly. A circumferential incision was made at the cervical vaginal reflection using cautery. This was undermined first anteriorly and a colpotomy made without difficulty. This was then repeated posteriorly and a similar colpotomy made. Beginning first on the patient's left, the uterosacral and cardinal ligament was clamped, sealed, divided with the Enseal device and suture ligated. Two bites were required to reach the previous dissection margin of the left side. The same process was then repeated on the patient's right hand side, at which point, the specimen was completely freed. Once the sutures had been placed and the pedicles secured, the uterus along with both tubes and ovaries were removed transvaginally without difficulty. All pedicles were inspected and hemostasis was confirmed. The patietn was given methylene blue IV. The right ovary was removed. The vaginal vault was then oversawn with a running locking Vicryl suture, securing first the posterior edge of the cuff followed by the anterior edge. Good hemostasis was obtained. Two [id number] sutures were then placed across the vaginal vault to close it. Once these had been tied off, all sutures were trimmed. The Salas catheter was noted yielding yellow urine. All instruments were removed from the vagina at this time. Then attention was again turned back to the abdomen and inspected the abdomen to ensure complete hemostasis. Once the entire abdomen was inspected. The ports were then removed under direct visualization being sure to note hemostasis of the port sites on removal. The incisions were then closed with interrupted 3O Vicryl sutures and Dermabond was applied. The patient tolerated the procedure well, anesthesia reversed, and the patient was taken to the recovery room in stable condition. All sponges, instruments, and sharps were counted and correct x 3.
[2022-02-24] MEDS: ketorolac 30 mg/mL INJ IVP ×2 (11:47→18:22)
[2022-02-24] MEDS: dextrose 5%-lactated ringers 1,000 ML 125 ML IV (13:55)
--- NOTE | 2022-02-24 16:34 | ANE.PACU2 ---
Inpatient post-anesthesia follow up: Airway intact: Yes Vital signs: Temperature 96.8 F Pulse Rate 73 Respiratory Rate 14 Blood Pressure 121/75 Pulse Oximetry 94 Oxygen Delivery Me thod Room Air Oxygen Flow Rate 10 Fraction of Inspir ed Oxygen Hydration adequate: Yes Nausea and vomiting: No Pain level: 1 Mental status: Baseline
[2022-02-24] MEDS: zonisamide 100 MG Capsule 400 MG PO (18:24)
[2022-02-24] MEDS: docusate sodium 100 mg Capsule PO (18:24)
[2022-02-24] MEDS: trazodone 50 mg Tablet PO (18:24)
[2022-02-24] MEDS: ALPRAZolam 0.5 mg Tablet 0.25 MG PO (20:02)
[2022-02-25] MEDS: ketorolac 30 mg/mL INJ IVP (01:07)
[2022-02-25 03:57] VITALS: TEMP 36.8
[2022-02-25 03:58] VITALS: BP 102/51; PULSE 94
[2022-02-25 05:32] LABS: Hematocrit 34.9 % (37.0-47.0); Hemoglobin 11.1 g/dL (11.5-15.3); Mean Corpuscular HGB Conc 31.8 g/dL (30.0-36.0); Mean Corpuscular Hemoglobin 27.8 pg (28.0-34.0); Mean Corpuscular Volume 87.3 fl (81-99); Mean Platelet Volume 8.9 fL (7.4-10.4); Platelet Count 347 10^3/cmm (130-400); Red Cell Distribution Width 15.1 % (12.1-15.1); White Blood Count 18.6 10^3/uL (4.0-10.0)
--- NOTE | 2022-02-25 09:09 | PM.OBGYDC ---
Discharge Providers [facility] [employer] Date of Admission: 02/24/22 13:41 Date of Discharge: 02/25/22 Attending Provider at Admission: David Elizondo MD Attending Provider at Discharge: David Elizondo MD Primary Care Provider: Camilo Haynes MD Reason for Visit Reason for Visit: R10.2 Hospital Course Hospital Course Mrs. Rolon 46-year-old female admitted for planned laparoscopic assisted vaginal hysterectomy with right salpingo-oophorectomy. The procedures were performed without complication. Overnight observation was uneventful. Tolerating diet well. Ambulating without difficulty. Patient was counseled regarding pelvic rest for 6 weeks (no sex, no tampons, no vaginal douches). Return to the emergency room if any fever, increased bleeding or pain. Physical Exam Narrative: GA: Alert and oriented ?3. HEENT: WNL. Heart: Regular rate and rhythm. Lungs: Clear to auscultation bilaterally. Abdomen: Bowel sounds present, minimal tenderness, incision clean and dry, no redness, pain or edema. 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 Extremities: No edema, no cyanosis, no calves pain. Urinary Catheter Management: Salas Latex: Cath Placed During This Visit: yes, but has since been removed by the nurse Reason for Continuing Indwelling Catheter: Decision to DC Catheter Urinary Catheter Date of Insertion: 02/24/22 Urinary Catheter Time of Insertion: 07:52 Date Urinary Catheter Removed: 02/25/22 Time Urinary Catheter Discontinued: 05:00 History History History 3 Term 2 0 Miscarriages/Ectopic 1 Living Children 2 Discharge Data Studies Completed and Pending Pending at discharge Category Date Time Status Pathology: Surgical [PTH] Routine Pth 02/24/22 09:30 Received Laboratory Results WBC 18.6 10^3/uL (4.0-10.0) H 02/25/22 05:00 RBC 4.00 10^6/uL (4.1-5.3) L 02/25/22 05:00 Hgb 11.1 g/dL (11.5-15.3) L 02/25/22 05:00 Hct 34.9 % (37.0-47.0) L 02/25/22 05:00 MCV 87.3 fl (81-99) 02/25/22 05:00 MCH 27.8 pg (28.0-34.0) L 02/25/22 05:00 MCHC 31.8 g/dL (30.0-36.0) 02/25/22 05:00 RDW 15.1 % (12.1-15.1) 02/25/22 05:00 Plt Count 347 10^3/cmm (130-400) 02/25/22 05:00 MPV 8.9 fL (7.4-10.4) 02/25/22 05:00 Neut % (Auto) 55.9 % 02/24/22 06:35 Lymph % (Auto) 26.4 % 02/24/22 06:35 [place] % (Auto) 7.7 % 02/24/22 06:35 Eos % (Auto) 8.9 % 02/24/22 06:35 Baso % (Auto) 0.9 % 02/24/22 06:35 Neut # (Auto) 4.89 10^3/uL (1.8-7.7) 02/24/22 06:35 Lymph # (Auto) 2.3 10^3/uL (0.8-4.8) 02/24/22 06:35 [place] # (Auto) 0.7 10^3/uL (0.2-0.9) 02/24/22 06:35 Eos # (Auto) 0.8 10^3/uL (0.0-0.8) 02/24/22 06:35 Baso # (Auto) 0.1 10^3/uL (0.0-0.1) 02/24/22 06:35 Nucleated RBC % (auto) 0 % 02/24/22 06:35 Nucleated RBCs # 0.0 /100WBC 02/24/22 06:35 Sodium 137 mmol/L (136-145) 02/24/22 06:35 Potassium 4.1 mmol/L (3.5-5.1) 02/24/22 06:35 Chloride 107 mmol/L (98-107) 02/24/22 06:35 Carbon Dioxide 22 mmol/L (22-29) 02/24/22 06:35 Anion Gap 12.1 (5-19) 02/24/22 06:35 BUN 5 mg/dL (6-20) L 02/24/22 06:35 Creatinine 0.7 mg/dL (0.5-0.9) 02/24/22 06:35 GFR Calculation 90.1 mL/min (90-130) 02/24/22 06:35 Glucose 98 mg/dL (65-115) 02/24/22 06:35 Calculated Osmolality 281 mOsm/kg (285-295) L 02/24/22 06:35 Calcium 8.7 mg/dL (8.5-10.5) 02/24/22 06:35 Total Bilirubin 0.2 mg/dL (0.15-1.2) 02/24/22 06:35 AST 15 U/L (0-32) 02/24/22 06:35 ALT 13 U/L (0-33) 02/24/22 06:35 Alkaline Phosphatase 104 U/L (35-105) 02/24/22 06:35 Total Protein 6.4 g/dL (6.6-8.7) L 02/24/22 06:35 Albumin 3.8 g/dL (3.5-5.2) 02/24/22 06:35 Globulin 2.6 g/dL (1.3-4.6) 02/24/22 06:35 Urine Color Yellow (Yellow) 02/24/22 06:18 Urine Appearance Clear (CLEAR) 02/24/22 06:18 Urine pH 7 (5-7) 02/24/22 06:18 Ur Specific Scott 1.015 (1.005-1.030) 02/24/22 06:18 Urine Protein Trace (Negative) 02/24/22 06:18 Urine Glucose (UA) Norm (Normal) 02/24/22 06:18 Urine Ketones Negative (Negative) 02/24/22 06:18 Urine Blood Neg (Negative) 02/24/22 06:18 Urine Nitrate Negative (Negative) 02/24/22 06:18 Urine Bilirubin Neg (Negative) 02/24/22 06:18 Urine Urobilinogen Neg mg/dL (Negative) 02/24/22 06:18 Ur Leukocyte Esterase 1+ (Negative) H 02/24/22 06:18 Urine RBC None /hpf (0-2) 02/24/22 06:18 Urine WBC 0-4 /hpf (0-5) H 02/24/22 06:18 Ur Squamous Epith Cells 25-40 /hpf (0-5) H 02/24/22 06:18 Amorphous Sediment 2+ /hpf 12/14/22 06:18 Urine Bacteria None /hpf (NONE) 02/24/22 06:18 Urine HCG, Qual Negative (Negative) 02/24/22 05:59 Blood Type O Negative 02/24/22 06:35 Rho(D) Type Negative 02/24/22 06:35 Antibody Screen Negative 02/24/22 06:35 Vitals Last Vital Signs Temp 98.2 F 02/25/22 03:57 Pulse 94 02/25/22 03:58 Resp 14 02/24/22 13:14 BP 102/51 02/25/22 03:58 Pulse Ox 94 02/24/22 13:14 O2 Del Method 02/24/22 13:30 O2 Flow Rate 10 02/24/22 09:45 Discharge Plan Discharge Patient Disposition: Home Condition: Stable Prescriptions: New hydrocodone-acetaminophen 5-325 mg tablet 1 tab PO Q4H PRN (Reason: pain) Qty: 30 0RF acetaminophen 325 mg capsule 325 mg PO Q4H PRN (Reason: fever or pain) Qty: 60 0RF ibuprofen 800 mg tablet 800 mg PO TID PRN (Reason: pain) Qty: 60 0RF Continued fluticasone propion-salmeterol [Advair Diskus] 250-50 mcg/dose blister with device 1 inh inhalation BID trazodone 50 mg tablet 50 mg PO DAILY zonisamide [Zonegran] 100 mg capsule 400 mg PO DAILY albuterol sulfate 90 mcg/actuation HFA aerosol inhaler 1 puff inhalation PRN PRN (Reason: Wheezing) albuterol sulfate 2.5 mg /3 mL (0.083 %) solution for nebulization 2.5 mg continuous nebulization PRN PRN (Reason: Wheezing) tretinoin 0.1 % cream 1 applic topical DAILY Qty: 45 4RF Rx Instructions: (RETIN-A) Apply pea-sized amount to face, chest, and back nightly Trelegy Ellipta 100-62.5-25 mcg blister with device 1 inh inhalation DAILY 30 Days Qty: 28 4RF alprazolam [Xanax] 0.25 mg tablet 0.25 mg PO PRN PRN (Reason: Anxiety) ibuprofen 800 mg tablet 800 mg PO TID PRN (Reason: pain) Qty: 60 0RF Discharge Orders: Discharge Order (Routine); Ordered 02/25/22 Ordered By: David Elizondo Referrals: David Elizondo MD [Physician] - 2 weeks Discharge Diet: Advance as tolerated Discharge Activity: Limit activity as instructed Patient Instructions: Opioid Safety, Vaginal Hysterectomy (GEN) Activity Restrictions/Additional Instructions: 1. Please call [facility] [place] 2[facility] [place] on next working day to make your post-operative appointment in 2 weeks. 2. Please stay home until you come back to the clinic on first post-operative check up. 3. Please follow instructions on your medications CAREFULLY. 4. If you have abdominal incision, do not cover it unless dressing is necessary because of drainage. OK to shower, but avoid bath. Leave steri-strips until they fall off. If they are still on one week after surgery, you may remove them. 5. If you had vaginal surgery or vaginal repair, Dr. Elizondo may instruct you to take SITZ bath. 6. Yellow, blood tinged odorous vaginal discharge is usually normal after hysterectomy or vaginal surgeries. 7. No sexual intercourse, tampons, or douches until you are completely released from the post-operative care. 8. Avoid constipation by eating right and maybe using some Metamucil or Milk of Magnesia. 9. All prescription refills are given during the working hours. Please do no wait till it runs out. Call the clinic at [phone] before your medication runs out. The clinic will get in touch with your doctor to prescribe medications if necessary. 10. Please remain within 40 mile radius from our hospital because emergencies do happen now and then during the post-operative period. 11. If you have stairs at home, take one step at a time slowly and minimize the number of trips. It helps to stay in one floor for the next few days. No lifting except what you can lift by one hand until you are released from the post-operative care. 12. Driving is discouraged until you are well healed. It may be 3-4 weeks before you feel strong enough to drive. You should be able to turn and look through the rear window without pain and you should be able to push the brake pedal very hard without pain before you drive. No fast rules, but SAFETY should be your primary concern. DO NOT drive if you are on sedating medications such as narcotics. 13. Call the clinic (during working hours) to make urgent appointment or go to the Emergency room, if any of the following occurs: i. Vaginal bleeding becomes heavy, more than a period. ii. Incision becomes red and sore, or drains pus. iii. Your temperature is over 100.4 or you have chill. iv. IV site becomes red and swollen (a little ``knot?? is usually OK) v. Persistent nausea and vomiting vi. Persistent constipation or diarrhea vii. Rash or allergic reaction to medications. Discharge Attestations [facility] Time Spent in Discharge Care*: greater than 30 min Coding Level of Care Code Acute Accounts Administrator for Kassandra Charles
[2022-02-25] MEDS: docusate sodium 100 mg Capsule PO (09:43)
[2022-02-25] MEDS: ibuprofen 800 mg tablet PO (09:43)
[2022-02-25] MEDS: HYDROcodone-acetaminophen 5-325 mg Tablet PO (09:43)
[2022-02-25 10:04] VITALS: BP 126/67; PULSE 66
[2022-02-25 10:05] VITALS: BP 126/67; PULSE 66; RESP 18; TEMP 36.6
== END 2022-02-25 10:08 | disposition home or self-care (01) ==
LOC: OBGYN 13:41
PROVIDERS: Admitting Provider Obstetrics & Gynecology; PCP Family Medicine; Visit Provider Obstetrics & Gynecology
PROC: 0UT9FZZ Resection of Uterus, Via Natural or Artificial Opening With Percutaneous Endoscopic Assistance (ICD-10-PCS; CPT 58552; principal; 2022-02-24 07:00)
PROC: (CPT 58661; 2022-02-24 07:00)
DX: N92.0 Excessive and frequent menstruation with regular cycle (principal); D25.9 Leiomyoma of uterus, unspecified; J44.9 Chronic obstructive pulmonary disease, unspecified; F17.210 Nicotine dependence, cigarettes, uncomplicated
CPT/HCPCS: 58552; 36415; 80053; 81001; 81025; 84703; 85025; 85027; 86850; 86900; 88307; 96374; G0378; J0330; J0694; J1100; J1170; J1885; J2405; J2704; J2710; J2765; J3010; J3490; J7030; J7040; J7121; Q9968

== ENCOUNTER 2022-03-11 06:42 | Outpatient (CLI) | payer BC, SELFPAY ==
--- NOTE | 2022-03-11 07:00 | CT_ITS ---
WS: [id number] CT CHEST TECHNIQUE: Noncontrast CT of the chest with coronal and sagittal reformatted images. CLINICAL INFORMATION: lung screening COMPARISON: None. DLP: 763.[address] scans at [facility] use at least one of these dose optimization techniques: automated e xposure control; mA and/or kV adjustment per patient size (includes targeted exams where dose is matc hed to clinical indication); or iterative reconstruction. FINDINGS: Both lungs are well aerated. No acute pulmonary infiltrates. No focal pneumonia or pleural fluid.Norm al caliber thoracic aorta. No mediastinal or hilar lymphadenopathy. No axillary lymphadenopathy. Adrenal glands are normal. Normal visualized thoracic spine. No other suspicious findings. CT/CT chest wo con [id number] IMPRESSION: 1. Both lungs are well aerated. No suspicious lung parenchymal opacities. 2. No focal pneumonia or pleural fluid. 3. No mediastinal or hilar lymphadenopathy. 4. No other suspicious findings.
== END 2022-03-11 06:43 | disposition home or self-care (01) ==
LOC: RAD 06:43
PROVIDERS: PCP Family Medicine; Visit Provider Internal Medicine Pulmonary Disease
DX: F17.200 Nicotine dependence, unspecified, uncomplicated (principal); J44.9 Chronic obstructive pulmonary disease, unspecified; J45.909 Unspecified asthma, uncomplicated; Z12.2 Encounter for screening for malignant neoplasm of respiratory organs
CPT/HCPCS: 71046; 71250

== ENCOUNTER 2022-03-26 16:29 | Emergency (ER) | payer BC, SELFPAY ==
[2022-03-26 16:41] VITALS: BP 131/94; PULSE 89; RESP 16; TEMP 36.7; O2SAT 98
--- NOTE | 2022-03-26 16:53 | CT_ITS ---
WS: [id number] CT ABDOMEN AND PELVIS WITH CONTRAST HISTORY: abd pain, hysterectomy less than 1 month ago. Abdominal pain. TECHNIQUE: Imaging performed of the abdomen and pelvis with IV contrast. Single phase imaging of the abdomen. Coronal and sagittal reformats are submitted. All CT scans at [facility] use at [address] one of these dose optimization techniques: automated exposure control; mA and/or kV adjustment per patient size (includes targeted exams where dose is matched to clinical indication); or iterative re construction. IV CONTRAST: Omnipaque 350; 95 mL IV. Oral contrast: No DLP: 876.13 mGy.cm COMPARISON: None available. Lower thorax: Lung bases are clear. Heart is normal size. Small hiatal hernia. Liver/biliary system: Normal size with no intrahepatic dilatation. Hypoechoic 9 mm region the posteri or RIGHT lobe the liver. May be a small hemangioma. 2 small to characterize further. Gallbladder: Normal. No gallstones or wall thickening. No pericholecystic fluid. Pancreas: Normal size pancreas and pancreatic duct. No adjacent inflammation. Spleen: Normal size spleen. No mass or infarct. Adrenal glands: Normal. No small bowel obstruction. Right kidney: Normal. Left kidney: Normal. Aorta: Normal. Lymphadenopathy: None. Free fluid: None. GI tract: Marked fluid distention of the stomach. Mixed density within the stomach. No small bowel obstruction. The appendix is partially visualized and appears normal. No colon obstruc tion. Abdominal wall: Fat containing umbilical hernia. Pelvis: Recent hysterectomy. There is no hematoma or abscess at the surgical bed. Normal appearance o f the urinary bladder. Bones: Unremarkable. CT/CT abdomen pelvis w con* [id number] IMPRESSION: 1. No acute abdominal or pelvic abnormalities are identified. No free fluid or free air. 2. Status post recent hysterectomy. No abscess or hematoma in the surgical sit e. 3. Marked fluid distention of the stomach. May be due to recent meal or a ingrid ritis.
--- NOTE | 2022-03-26 16:57 | W.ED.ABDPA2 ---
HPI - Abdominal Pain General: Chief Complaint: Abdominal Pain Stated Complaint: Histerectomy on Feb, Abd pain Time Seen by Provider: 03/26/22 16:47 Source: patient Mode of arrival: ambulatory Limitations: no limitations History of Present Illness: 46-year-old female who states she had a hysterectomy 1 month ago states that she had had a fall 2 weeks ago and since then she been having increasing pain she had some slight drainage from her umbilical incision as well. She had seen her OB just today who had sent her here to the ER for CT scan she been afebrile she rates her pain a 6 out of 10 is worse with movement no vomiting no diarrhea. Associated Symptoms: Denies chills, dysuria and fever(s) Related Data: Date of Last Menstrual Period: 03/09/19 Review of Systems Const: Denies: fever(s), chills, body aches or change in appetite Eyes: Denies: blurry vision or eye discomfort ENMT: Denies: throat pain or dental pain Card: Denies: chest pain Resp: Denies: dyspnea GI: Reports: abdominal pain : Denies: dysuria Musc: Denies: neck pain or back pain Skin/Breast: Denies: rash Neuro: Denies: headache(s) Psych: Denies: depression Chon/Lymph: Denies: easy bruising All/Imm: Denies: urticaria PFSH ED PFSH: Medical History No pertinent past medical history Surgical History H/O section x2 H/O tubal ligation performed with last section H/O: hysterectomy (~02/24/22) LAVH, RSO-- for menorrhagia, uterine fibroids, right ovarian mass. Benign pathology. History of hysteroscopy 12/23/2021: hysteroscopy, D&C via Myosure performed by Dr. Elizondo at [facility] Status post right foot surgery right foot Family History Mother Diabetes Hyperlipidemia Hypertension Heart disease Father Hypertension Lung cancer Family/Other Breast cancer maternal first cousin, 50 Denies family history of Colon cancer Ovarian cancer Clotting disorder Anesthesia complication Bleeding disorder Uterine cancer Thyroid condition Stroke Social History Smoking and tobacco status: current every day smoker (1ppd) cigarettes Packs smoked per day: 1.5 Years cigarettes smoked: 32 [ Other cigarette details: Started at age 14] Female Reproductive History: Date of last menstrual period: 03/09/19 Physical Exam Const: COMMON NORMALS: no acute distress, patient oriented x3 and healthy appearing HENMT: COMMON NORMALS: normocephalic and atraumatic HEAD & SCALP: normocephalic and atraumatic Eye: COMMON NORMALS: Equal, round and reactive pupils present and EOMs intact bilaterally PUPIL: Yes Equal, round and reactive pupils present Neck/C-Spine: COMMON NORMALS: full ROM and supple Chest: COMMONS NORMALS: normal inspection of the chest and normal palpation of entire chest wall Resp: COMMON NORMALS: normal respiratory effort, No retractions, No use of accessory muscles and clear to auscultation bilaterally AUSCULTATION: clear to auscultation bilaterally Cardio: COMMON NORMALS: regular rate, regular rhythm and No murmurs present (Cardio) RATE: regular rate RHYTHM: regular rhythm GI: COMMON NORMALS: Normal to inspection, nondistended, normoactive bowel sounds present, Soft to palpation, non-tender and no masses PALPATION: Yes Soft to palpation Extremity: COMMON NORMALS: normal to inspection and full ROM Neuro: COMMON NORMALS: patient oriented x3, moves all extremities and no focal motor deficits Psych: COMMON NORMALS: mental status grossly normal, Normal thought process present and cooperative THOUGHT PROCESS: Normal thought process present Skin: COMMON NORMALS: no rashes or lesions noted and no wounds GENERAL SKIN EXAM: no rashes or lesions noted Course Vital Signs: Vital signs: Vital Signs Temperature 98.0 F 03/26/22 16:41 Pulse Rate 100 03/26/22 18:43 Respiratory Rate 14 03/26/22 18:43 Blood Pressure 134/84 03/26/22 18:43 Pulse Oximetry 99 03/26/22 18:43 Oxygen Delivery Me thod 03/26/22 18:43 MDM - Abdominal Pain Medical Decision Making Patient presents with abdominal pain CT and blood work are normal she has no signs of infection she is stable for discharge she is to follow-up with her surgeon return if worsening. Lab Data 03/26/22 17:01 03/26/22 17:01 Labs/Radiology: Radiology Impressions Abdomen/Pelvis CT 03/26/22 16:53 IMPRESSION: 1. No acute abdominal or pelvic abnormalities are identified. No free fluid or free air. 2. Status post recent hysterectomy. No abscess or hematoma in the surgical site. 3. Marked fluid distention of the stomach. May be due to recent meal or a gastritis. Laboratory Results WBC 9.0 10^3/uL (4.0-10.0) 03/26/22 17: RBC 4.62 10^6/uL (4.1-5.3) 03/26/22 17:01 Hgb 12.3 g/dL (11.5-15.3) 03/26/22 17:01 Hct 39.1 % (37.0-47.0) 03/26/22 17:01 MCV 84.6 fl (81-99) 03/26/22 17:01 MCH 26.6 pg (28.0-34.0) L 03/26/22 17: MCHC 31.5 g/dL (30.0-36.0) 03/26/22 17:01 RDW 15.2 % (12.1-15.1) H 03/26/22 17:01 Plt Count 322 10^3/cmm (130-400) 03/26/22 17:01 MPV 9.4 fL (7.4-10.4) 03/26/22 17:01 Neut % (Auto) 58.4 % 03/26/22 17:01 Lymph % (Auto) 26.2 % 03/26/22 17:01 Swift % (Auto) 9.0 % 03/26/22 17:01 Eos % (Auto) 5.5 % 03/26/22 17:01 Baso % (Auto) 0.7 % 03/26/22 17:01 Neut # (Auto) 5.25 10^3/uL (1.8-7.7) 03/26/22 17:01 Lymph # (Auto) 2.4 10^3/uL (0.8-4.8) 03/26/22 17:01 Swift # (Auto) 0.8 10^3/uL (0.2-0.9) 03/26/22 17:01 Eos # (Auto) 0.5 10^3/uL (0.0-0.8) 03/26/22 17:01 Baso # (Auto) 0.1 10^3/uL (0.0-0.1) 03/26/22 17:01 Nucleated RBC % (auto) 0 % 03/26/22 17:01 Nucleated RBCs # 0.0 /100WBC 03/26/22 17:01 Sodium 138 mmol/L (136-145) 03/26/22 17:01 Potassium 3.5 mmol/L (3.5-5.1) 03/26/22 17:01 Chloride 105 mmol/L (98-107) 03/26/22 17:01 Carbon Dioxide 25 mmol/L (22-29) 03/26/22 17:01 Anion Gap 11.5 (5-19) 03/26/22 17:01 BUN 12 mg/dL (6-20) 03/26/22 17:01 Creatinine 1.0 mg/dL (0.5-0.9) H 03/26/22 17:01 GFR Calculation 59.7 mL/min (90-130) L 03/26/22 17:01 Glucose 114 mg/dL (65-115) 03/26/22 17:01 Calculated Osmolality 287 mOsm/kg (285-295) 03/26/22 17:01 Calcium 8.9 mg/dL (8.5-10.5) 03/26/22 17:01 Total Bilirubin 0.2 mg/dL (0.15-1.2) 03/26/22 17:01 AST 15 U/L (0-32) 03/26/22 17:01 ALT 7 U/L (0-33) 03/26/22 17:01 Alkaline Phosphatase 128 U/L (35-105) H 03/26/22 17:01 Total Protein 6.7 g/dL (6.6-8.7) 03/26/22 17:01 Albumin 3.8 g/dL (3.5-5.2) 03/26/22 17:01 Globulin 2.9 g/dL (1.3-4.6) 03/26/22 17:01 Lipase 101 U/L (13-60) H 03/26/22 17:01 Urine Color Yellow (Yellow) 03/26/22 18:00 Urine Appearance Hazy (CLEAR) A 03/26/22 18:00 Urine pH 8 (5-7) H 03/26/22 18:00 Ur Specific [place] 1.010 (1.005-1.030) 03/26/22 18:00 Urine Protein Neg (Negative) 03/26/22 18:00 Urine Glucose (UA) Norm (Normal) 03/26/22 18:00 Urine Ketones Negative (Negative) 03/26/22 18:00 Urine Blood Neg (Negative) 03/26/22 18:00 Urine Nitrate Negative (Negative) 03/26/22 18:00 Urine Bilirubin Neg (Negative) 03/26/22 18:00 Prot Sulfosalicylic Acd Negative (Negative) 03/26/22 18:00 Urine Urobilinogen Neg mg/dL (Negative) 03/26/22 18:00 Ur Leukocyte Esterase 1+ (Negative) H 03/26/22 18:00 Urine RBC None /hpf (0-2) 03/26/22 18:00 Urine WBC None /hpf (0-5) 03/26/22 18:00 Ur Squamous Epith Cells 0-4 /hpf (0-5) H 03/26/22 18:00 Amorphous Sediment 3+ /hpf 03/26/22 18:00 Urine Bacteria None /hpf (NONE) 03/26/22 18:00 Discharge Plan Discharge Patient Disposition: Home Clinical Impression: Abdominal pain Condition: Stable Prescriptions: New hydrocodone-acetaminophen 5-325 mg tablet 1 tab PO Q6H PRN (Reason: pain) Qty: 14 0RF ondansetron 4 mg tablet,disintegrating 4 mg PO Q6H PRN (Reason: nausea and vomiting) Qty: 14 0RF No Action trazodone 50 mg tablet 50 mg PO DAILY zonisamide [Zonegran] 100 mg capsule 400 mg PO DAILY albuterol sulfate 90 mcg/actuation HFA aerosol inhaler 1 puff inhalation PRN PRN (Reason: Wheezing) tretinoin 0.1 % cream 1 applic topical DAILY Qty: 45 4RF Rx Instructions: (RETIN-A) Apply pea-sized amount to face, chest, and back nightly nystatin 100,000 unit/mL suspension 1 ml PO DAILY Qty: 200 3RF Rx Instructions: swish and swallow Trelegy Ellipta 100-62.5-25 mcg blister with device 1 inh inhalation DAILY Qty: 60 3RF ibuprofen 800 mg tablet 800 mg PO TID PRN (Reason: pain) Qty: 60 0RF alprazolam [Xanax] 0.25 mg tablet 0.25 mg PO PRN PRN (Reason: Anxiety) montelukast [Singulair] 10 mg tablet 10 mg PO DAILY Qty: 90 1RF Discharge Orders: Discharge ED (Routine); Ordered 03/26/22 Ordered By: Kindra Raya Referrals: David Elizondo MD [Physician] - 1-3 days Camilo Haynes MD [Primary Care Provider] - Discharge Diet: Advance as tolerated Discharge Activity: Resume usual activity Patient Instructions: Abdominal Pain (ED), Opioid Safety Coding Level of Care Code ED [employer] Manager for Chg Fwd Exam Comprehensive
[2022-03-26 17:18] LABS: Basophils # 0.1 10^3/uL (0.0-0.1); Basophils % 0.7 %; Eosinophils # 0.5 10^3/uL (0.0-0.8); Eosinophils % 5.5 %; Hematocrit 39.1 % (37.0-47.0); Hemoglobin 12.3 g/dL (11.5-15.3); Lymphocytes # 2.4 10^3/uL (0.8-4.8); Lymphocytes % 26.2 %; Mean Corpuscular HGB Conc 31.5 g/dL (30.0-36.0); Mean Corpuscular Hemoglobin 26.6 pg (28.0-34.0); Mean Corpuscular Volume 84.6 fl (81-99); Mean Platelet Volume 9.4 fL (7.4-10.4); Monocytes # 0.8 10^3/uL (0.2-0.9); Neutrophils # 5.25 10^3/uL (1.8-7.7); Neutrophils % 58.4 %; Nucleated Red Blood Cells % 0 %; Platelet Count 322 10^3/cmm (130-400); Red Blood Count 4.62 10^6/uL (4.1-5.3); Red Cell Distribution Width 15.2 % (12.1-15.1)
[2022-03-26] MEDS: iohexol 350 mg/mL 500 mL Btl (per mL) IV (17:20)
[2022-03-26 17:29] LABS: Alanine Aminotransferase 7 U/L (0-33); Albumin Level 3.8 g/dL (3.5-5.2); Alkaline Phosphatase 128 U/L (35-105); Anion Gap 11.5 (5-19); Aspartate Amino Transferase 15 U/L (0-32); Blood Urea Nitrogen 12 mg/dL (6-20); Calcium 8.9 mg/dL (8.5-10.5); Carbon Dioxide 25 mmol/L (22-29); Chloride 105 mmol/L (98-107); Globulin 2.9 g/dL (1.3-4.6); Glomerular Filtration Rate 59.7 mL/min (90-130); Glucose 114 mg/dL (65-115); Lipase 101 U/L (13-60); Osmolality Calculated 287 mOsm/kg (285-295); Potassium 3.5 mmol/L (3.5-5.1); Sodium 138 mmol/L (136-145); Total Bilirubin 0.2 mg/dL (0.15-1.2); Total Protein 6.7 g/dL (6.6-8.7)
[2022-03-26 17:39] VITALS: BP 134/84; PULSE 100; RESP 14; O2SAT 99
[2022-03-26] MEDS: acetaminophen 500 mg Tablet 1000 MG PO (17:57)
[2022-03-26 18:17] LABS: Bilirubin Urine Neg (Negative); Blood Urine Neg (Negative); Glucose Urine UA Norm (Normal); Ketones Urine Negative (Negative); Leukocyte Esterase Urine 1+ (Negative); Nitrate Urine Negative (Negative); Protein Urine Neg (Negative); Sulfosalicylic Acid Urine Negative (Negative); Urine Appearance Hazy (CLEAR); Urine Color Yellow (Yellow); Urobilinogen Urine Neg (Negative); pH Urine 8 (5-7)
[2022-03-26 18:18] LABS: Add Urine Culture? No; Add Urine Microscopic? YES; Amorphous Sediment Urine 3+ /hpf; Squamous Epithelial Cell Urine 0-4 /hpf (0-5)
[2022-03-26 18:43] VITALS: BP 134/84; PULSE 100; RESP 14; O2SAT 99
[2022-03-26 19:44] VITALS: BP 117/82; PULSE 64; RESP 16; TEMP 36.6; O2SAT 99
== END 2022-03-26 19:47 | disposition home or self-care (01) ==
PROVIDERS: Emergency Provider Emergency Medicine; PCP Family Medicine
DX: R10.9 Unspecified abdominal pain (principal); F17.210 Nicotine dependence, cigarettes, uncomplicated
CPT/HCPCS: 36415; 74177; 80053; 81001; 83690; 85025; 99285; J2270; J2405; Q9967

== ENCOUNTER 2022-04-28 10:59 | Outpatient (CLI) | payer BC, SELFPAY ==
--- NOTE | 2022-04-28 11:06 | MM_ITS ---
WS: [id number] DIAGNOSTIC BILATERAL DIGITAL BREAST TOMOSYNTHESIS MAMMOGRAPHY WITH CAD Bilateral breast ultrasound, limited HISTORY: 6 month follow-up. COMPARISON: 10/21/2021 and 10/06/2021 TECHNIQUE: Bilateral craniocaudad, mediolateral oblique, and mediolateral views are submitted with to mosynthjoanna and SM. Bilateral CC and MLO projections. Computer aided detection utilized. Breast composition: There are scattered areas of fibroglandular density. Stable asymmetry measuring 5 .3 mm in the lateral RIGHT breast at a middle to posterior depth. This is not visualized on the ultra sound. Very minimal asymmetry persists in the central LEFT breast. Bilateral breast ultrasound, limited. RIGHT: No mass is identified to correspond to the mammographic abnormality. Ultrasound performed natalia g the 8-9 o'clock axis. LEFT: Normal breast ultrasound along the lateral breast. No cysts identified today. MM/[place] [id number] IMPRESSION: BI-RADS: 3-Probably Benign FOLLOW UP: 6 Month Follow-up Recommend diagnostic RIGHT mammogram follow-up in 6 months. No change in the as ymmetry at 9:00. Also no mammographic abnormality. No additional follow-up of the LEFT breast at this time.
== END 2022-04-28 11:00 | disposition home or self-care (01) ==
LOC: RAD 10:59
PROVIDERS: PCP Family Medicine; Visit Provider Family Medicine
DX: R92.8 Other abnormal and inconclusive findings on diagnostic imaging of breast (principal); N64.89 Other specified disorders of breast
CPT/HCPCS: 76642; 77062; G0279

== ENCOUNTER 2022-05-05 07:47 | Outpatient (CLI) | payer BC, SELFPAY ==
[2022-05-05 08:24] VITALS: BMI 34.1
--- NOTE | 2022-05-05 08:24 | NMCV_ITS ---
NM devin perf SPECT r/s* [id number] Will Michel Age: 46 Gender: F : 1975 Exam Date: 05/05/2022 09:12 Ordering Phys: Quinn Kelly MD Technologist: CHRISTIAN Rosenbaum Exam Location: [facility] Indications: SHORTNESS OF BREATH STRESS TEST Please see separate stress test report in [facility] for full findings IMAGE PROTOCOL Rest/Stress 1 Lexiscan Day Radiopharmaceutical Dose (mCi) Administration Site Administered by Rest: Tc-99m 10.7 IV CHRISTIAN Cervantes Sestamibi Stress:Tc-99m 32.9 IV CHRISTIAN Cervantes Sestamibi Rest: 05-May-2022 60 Discovery 630 Stress: 05-May-2022 30 Discovery 630 0.4mg Lexiscan. Images obtained in supine and prone position. SPECT RESULTS Technical Quality: Excellent Raw Data Analysis: Normal Image Corrections: No attenuation or motion correction applied Summed Stress Score: 0 Summed Rest Score: 0 Summed Difference Score: 0 PERFUSION FINDINGS SPECT images demonstrate homogeneous tracer distribution throughout the myocardium. FUNCTIONAL RESULTS (calculated via Gated SPECT) Stress Image LV EF (%): 62 Stress EDV (mL):110 TID: 1 Stress ESV (mL):42 FUNCTIONAL FINDINGS: There is normal left ventricular systolic function. IMPRESSIONS 1. Normal myocardial perfusion imaging with no evidence of ischemia 2. LV systolic function is normal Gopi Mensah MD (Electronically Signed) Final Date: 05 May 2022 17:20 S
--- NOTE | 2022-05-05 08:24 | ECG_ITS ---
[facility] Test Date: 2022-05-05 Pat Name: Will Michel Department: Room: Gender: Female Actuary Manager: Dianne Santana : 1975 Requested By: Quinn Romeror Ramirez Order Number: [id number] Spike MD: Gopi Mensah M.D. Interpretive Statements NAME OF STUDY: LEXISCAN SESTAMIBI STRESS TEST INDICATION: [Shortness of Breath, ] Procedure: At the baseline, the blood pressure was 122/76 mmHg with a heart rate of 69 bpm. The electrocardiogram showed normal sinus rhythm, normal axis with normal ST and T's. The Lexiscan was infused over a period of 20 seconds. A total of 0.4 mg of Lexiscan was infused. The stress phase was continued for a total of 5 minutes. Heart rate was at the end of stress phase was 89 bpm and a blood pressure of 136/80 mmHg. The EKG at the peak infusion revealed normal sinus rhythm with no significant ST-T wave changes. Sestamibi was injected 20 seconds after the Lexiscan infusion. Blood pressure at the end of recovery phase was 133/79 mmHg with a heart rate of 84 bpm. Conclusion: 1. Normal EKG response to Lexiscan infusion 2. No Lexiscan induced chest pain or cardiac arrhythmia. 3. Normal blood pressure and heart rate response. 4. Sestamibi/sestamibi perfusion scan pending; see separate report. Electronically Signed On 05-15-2022 18:42:07 [employer]UD[employer] DEAN by Gopi Mensah M.D. [email or web address]
[2022-05-05] MEDS: regadenoson 0.4 Mg/5 ml Syringe IVP (09:40)
[2022-05-05] MEDS: ondansetron 2 mg/ML SDV 2 mL 4 MG IVP (09:48)
[2022-05-05 10:04] VITALS: BP 133/77; PULSE 80
== END 2022-05-05 07:48 | disposition home or self-care (01) ==
PROVIDERS: PCP Family Medicine; Visit Provider Internal Medicine Pulmonary Disease
DX: R06.02 Shortness of breath (principal)
CPT/HCPCS: 36415; 78452; 93017; 96374; 96375; A9500; J2405; J2785

== ENCOUNTER 2022-11-30 09:39 | Outpatient (CLI) | payer BC, SELFPAY ==
--- NOTE | 2022-11-30 09:54 | MM_ITS ---
WS: [id number] DIAGNOSTIC RIGHT DIGITAL TOMOSYNTHESIS MAMMOGRAPHY WITH CAD. RIGHT breast ultrasound, limited HISTORY: 6-month follow-up COMPARISON: 04/28/2022 and 10/21/2021 Technique: CC, MLO and ML views. Spot compression RIGHT CC and MLO Breast composition: There are scattered areas of fibroglandular density. Reidentified is the ovoid 6. 4 mm mass in the lateral RIGHT breast near 9:00 at a middle depth. No increase in size. Otherwise no change. RIGHT breast ultrasound, limited. 6 mm nodule in the lateral RIGHT breast is still not identified by ultrasound. There are no suspiciou s masses by ultrasound. No shadowing. IMPRESSION: MM/[place] [id number] BI-RADS: 2-Benign FOLLOW UP: 6 Month Follow-up Recommend continued surveillance of the RIGHT breast nodule. Follow-up limited RIGHT breast ultrasound in 6 months.
== END 2022-11-30 09:40 | disposition home or self-care (01) ==
PROVIDERS: PCP Family Medicine; Visit Provider Family Medicine
DX: R92.8 Other abnormal and inconclusive findings on diagnostic imaging of breast (principal)
CPT/HCPCS: 76642; 77061; G0279

== ENCOUNTER 2023-07-05 08:43 | Outpatient (CLI) | payer BC, SELFPAY ==
--- NOTE | 2023-07-05 08:49 | US_ITS ---
WS: [id number] DIAGNOSTIC BILATERAL DIGITAL BREAST TOMOSYNTHESIS MAMMOGRAPHY WITH CAD RIGHT breast ultrasound, limited. HISTORY: breast bilateral6 mo f/u COMPARISON: 11/30/2022, 04/28/2022, 10/21/2021 TECHNIQUE: Bilateral craniocaudad, mediolateral oblique, and mediolateral views are submitted with to mosrichar and SM. Computer aided detection utilized. Breast composition: There are scattered areas of fibroglandular density. Ovoid nodule measuring 6.8 m m middle depth RIGHT breast near the 8-9 o'clock axis. Very similar in size to the most recent mammog noel evaluations. LEFT breast is negative. RIGHT breast ultrasound, limited. RIGHT breast is imaged along the 8-9 o'clock axis. There is no mass identified. The mammographic nodu le is not visualized by ultrasound. IMPRESSION: US/US breast RT limited* [id number] BI-RADS: 3-Probably Benign FOLLOW UP: 1 Year Follow-up Recommend additional 1 year follow-up of the unchanged mass in the RIGHT breast along the 8-9 o'clock axis. No change since 10/21/2021. This may be an intramam dre lymph node. Recommend additional imaging in 1 year and possible ultrasound . An additional follow-up will demonstrate long-term stability.
--- NOTE | 2023-07-05 09:00 | MM_ITS ---
WS: [id number] DIAGNOSTIC BILATERAL DIGITAL BREAST TOMOSYNTHESIS MAMMOGRAPHY WITH CAD RIGHT breast ultrasound, limited. HISTORY: breast bilateral6 mo f/u COMPARISON: 11/30/2022, 04/28/2022, 10/21/2021 TECHNIQUE: Bilateral craniocaudad, mediolateral oblique, and mediolateral views are submitted with to mosrichar and SIL. Computer aided detection utilized. Breast composition: There are scattered areas of fibroglandular density. Ovoid nodule measuring 6.8 m m middle depth RIGHT breast near the 8-9 o'clock axis. Very similar in size to the most recent mammog noel evaluations. LEFT breast is negative. RIGHT breast ultrasound, limited. RIGHT breast is imaged along the 8-9 o'clock axis. There is no mass identified. The mammographic nodu le is not visualized by ultrasound. IMPRESSION: MM/[place] [id number] BI-RADS: 3-Probably Benign FOLLOW UP: 1 Year Follow-up Recommend additional 1 year follow-up of the unchanged mass in the RIGHT breast along the 8-9 o'clock axis. No change since 10/21/2021. This may be an intramam dre lymph node. Recommend additional imaging in 1 year and possible ultrasound . An additional follow-up will demonstrate long-term stability.
== END 2023-07-05 08:44 | disposition home or self-care (01) ==
LOC: RAD 08:43
PROVIDERS: PCP Family Medicine; Visit Provider Family Medicine
DX: R92.8 Other abnormal and inconclusive findings on diagnostic imaging of breast (principal); R92.323 Mammographic fibroglandular density, bilateral breasts
CPT/HCPCS: 76642; 77062; G0279

== ENCOUNTER 2024-06-13 06:55 | Outpatient (CLI) | payer BC, SELFPAY ==
--- NOTE | 2024-06-13 07:15 | MR_ITS ---
WS: [id number] MRI HEAD WITHOUT CONTRAST TECHNIQUE: Sagittal T1, T2 axial, T2 axial FLAIR, axial and coronal T1 images, axial susceptibility weighted imaging, axial diffusion weighted images, and coronal T2 images were obtained. CLINICAL INFORMATION: H47.10 - Unspecified papilledema COMPARISON: 2018 FINDINGS: No evidence of restricted diffusion to suggest acute ischemia. Ventricular system and basal cisterns are patent. No suspicious intracranial signal abnormalities. Normal troncoso-white differentiation. Normal posterior fossa. Normal vascular flow voids at the skull base. No hemosiderin on the susceptibility weighted images. No extra-axial fluid collections. No evidence of mass or mass effect. Mild mucosal thickening in the paranasal sinuses. Polypoid mucosal thickening left maxillary sinus. RIGHT maxillary sinusitis. Normal optic chiasm and pituitary infundibulum. MR/MR head wo con* [id number] IMPRESSION: 1. No evidence of restricted diffusion to suggest acute ischemia. 2. No suspicious intracranial signal abnormalities. 3. No hydrocephalus. 4. RIGHT maxillary sinusitis. Mucosal thickening with retention cyst in the LE FT maxillary sinus. Mucosal thickening in the paranasal sinuses. 5. No hemosiderin on susceptibility-weighted images.
--- NOTE | 2024-06-13 08:00 | MR_ITS ---
WS: [id number] MR venogram INDICATION: Unspecified papilledema TECHNIQUE: [id number] MR venogram with maximum intensity projection images. FINDINGS: Normal sagittal sinus. Straight sinus is patent. Normal internal cerebral veins. Transverse and sigmoid sinuses are patent. Distal internal jugular veins are patent. No evidence of dural sinus thrombosis. MR/[place] [id number] IMPRESSION: Normal dural venous sinuses
== END 2024-06-13 06:56 | disposition home or self-care (01) ==
PROVIDERS: PCP Family Medicine; Visit Provider Specialist
DX: H47.10 Unspecified papilledema (principal)
CPT/HCPCS: 70544; 70551

== ENCOUNTER 2024-07-16 07:14 | Outpatient (CLI) | payer BC, SELFPAY | END 2024-07-16 07:15 | disposition home or self-care (01) | LOC: SLEEP 07:15 | PROVIDERS: PCP Family Medicine; Visit Provider Specialist | DX: G47.33 Obstructive sleep apnea (adult) (pediatric) (principal); G47.36 Sleep related hypoventilation in conditions classified elsewhere | CPT/HCPCS: G0399 ==

== ENCOUNTER → 2024-09-12 08:15 | Outpatient (BNVA) | payer BC, SELFPAY | PROVIDERS: PCP Family Medicine; Visit Provider Specialist | DX: G93.2 Benign intracranial hypertension (principal) | CPT/HCPCS: 80503; 82945; 84157; 86592; 87070; 87075; 87205; 89050 ==